=== PATIENT | male | born 1970 | race Caucasian/White ===

== ENCOUNTER 2017-03-10 09:54 | Day surgery (SDC) | payer BC ==
[~2017-03-10 09:54] MED LIST: ASPIRIN81 M1 PO; COENZYME Q10200 M2 PO; COREG25 M1 PO; Ceftin PO; K-DUR20 MEQ PO; LASIX80 MG PO; PRINIVIL5 MG PO; Robitussin AC,Tussi- PO; SPIRONOLACTONE25 MG PO; Theragran PO; Zithromax PO
[2017-03-10] MEDS ORDERED: CELLCEPT250 MG PO (10:24)
[2017-03-10] MEDS ORDERED: ENVARSUS XR4 MG PO (10:25)
[2017-03-10] MEDS ORDERED: AMIODARONE HCL100 MG PO (10:26)
[2017-03-10] MEDS ORDERED: ALLOPURINOL100 MG PO (10:26)
[2017-03-10] MEDS ORDERED: PREDNISONE20 MG PO (10:27)
[2017-03-10] MEDS ORDERED: PRAVASTATIN SOD10 MG PO (10:27)
[2017-03-10] MEDS ORDERED: LANSOPRAZOLE30 MG PO (10:28)
[2017-03-10] MEDS ORDERED: METOPROLOL SUCC25 MG PO (10:28)
[2017-03-10] MEDS ORDERED: [UNRECOGNIZED DRUG - CODE] PO (10:29)
[2017-03-10] MEDS ORDERED: MAGNESIUM100 MG PO (10:29)
[2017-03-10] MEDS ORDERED: VITAMIN D2000 UNI1 PO (10:29)
[2017-03-10] MEDS ORDERED: BACTRIM,SEPT1 TABLET PO (10:30)
[2017-03-10] MEDS ORDERED: METOLAZONE2.5 MG PO (10:31)
[2017-03-10] MEDS ORDERED: ACYCLOVIR200 MG PO (10:31)
[2017-03-10] MEDS ORDERED: BUMEX2 MG PO (10:32)
[2017-03-10 12:57] LABS: METH RESISTANT S AUREUS PCR NEGATIVE (NEGATIVE); PROBE CHECK PASS; SPECIMEN PROCESSING CONTROL PASS
== END 2017-03-10 14:00 | disposition home or self-care (01) ==
LOC: CATH 09:54
PROVIDERS: Surgery
PROC: 0J2TXYZ Change Other Device in Trunk Subcutaneous Tissue and Fascia, External Approach (ICD-10-PCS; principal; 2017-03-10)
DX: T82.514A Breakdown (mechanical) of infusion catheter, initial encounter (principal); I13.2 Hypertensive heart and chronic kidney disease with heart failure and with stage 5 chronic kidney disease, or end stage renal disease; N18.6 End stage renal disease; I50.9 Heart failure, unspecified; Z99.2 Dependence on renal dialysis
CPT/HCPCS: 87641; C1752; C1769; C1894; J0690; J1200; J1644; J2250; J3010; S0020

== ENCOUNTER 2017-05-12 05:33 | Day surgery (SDC) | payer BC ==
[~2017-05-12] VITALS: Ht 185.4 cm; Wt 95.3 kg
[~2017-05-12 05:33] MED LIST changes: +ACYCLOVIR200 MG PO; +ALLOPURINOL100 MG PO; +AMIODARONE HCL100 MG PO; +APRESOLINE50 MG PO; +BACTRIM,SEPT1 TABLET PO; +BUMEX2 MG PO; +CELLCEPT500 MG PO; +ENVARSUS XR4 MG PO; +HUMALOG100 UNIT/1 SC; +HUMALOG100 UNIT/1 SQ; +LANSOPRAZOLE30 MG PO; +MAGNESIUM100 MG PO; +METOLAZONE2.5 MG PO; +METOPROLOL SUCC25 MG PO; +NORVASC10 MG PO; +PRAVASTATIN SOD10 MG PO; +PREDNISONE10 MG PO; +PROGRAF5 MG PO; +VITAMIN D2000 UNI1 PO; +[UNRECOGNIZED DRUG - CODE] PO
[2017-05-12 05:50] VITALS: BP 143/76
[2017-05-12 06:29] LABS: HEMATOCRIT 30.7 % (38.0-50.0); HEMOGLOBIN 9.9 G/DL (12.5-16.6); MCH 29.5 PG (29.0-34.0); MCHC 32.2 G/DL (30.0-36.0); MCV 91.4 FL (86-99); PLATELET COUNT 143 K/uL (156-360); RBC DIS.WIDTH-CV 15.2 % (11.8-14.6); RBC DIS.WIDTH-SD 49.9 % (39-53); RED BLOOD COUNT 3.36 M/uL (4.00-5.50); WHITE BLOOD COUNT 4.9 K/uL (4.1-10.2)
[2017-05-12 06:57] LABS: CHLORIDE 99 MEQ/L (99-109); GFR ESTIMATE (CALCULATED) 11 mL/min/ (58.99-99999); GLUCOSE 115 mg/dL (70-99); POTASSIUM 3.5 MEQ/L (3.7-5.4); SODIUM 142 MEQ/L (136-147); UREA NITROGEN (BUN) 82 mg/dL (9-23)
[2017-05-12 09:40] VITALS: BP 122/64
[2017-05-12 10:28] VITALS: BP 119/58
== END 2017-05-12 10:40 | disposition home or self-care (01) ==
LOC: SDC 05:33
PROVIDERS: Surgery
DX: I12.0 Hypertensive chronic kidney disease with stage 5 chronic kidney disease or end stage renal disease (principal); E09.22 Drug or chemical induced diabetes mellitus with diabetic chronic kidney disease; T38.0X5A Adverse effect of glucocorticoids and synthetic analogues, initial encounter; N18.6 End stage renal disease; Z99.2 Dependence on renal dialysis; Z79.82 Long term (current) use of aspirin; I25.10 Atherosclerotic heart disease of native coronary artery without angina pectoris; Z94.1 Heart transplant status
CPT/HCPCS: 80048; 85027; 87641; C1750; J0690; J1644; J2250; J3010

== ENCOUNTER 2017-06-14 13:49 | Day surgery (SDC) | payer BC ==
[~2017-06-14] VITALS: Ht 185.4 cm; Wt 98.0 kg
[2017-06-14 14:04] VITALS: BP 147/86
[2017-06-14 14:31] LABS: MCH 30.6 PG (29.0-34.0); MCHC 31.4 G/DL (30.0-36.0); MCV 97.5 FL (86-99); PLATELET COUNT 151 K/uL (156-360); RBC DIS.WIDTH-CV 14.6 % (11.8-14.6); RBC DIS.WIDTH-SD 52.7 % (39-53); RED BLOOD COUNT 3.59 M/uL (4.00-5.50); WHITE BLOOD COUNT 3.8 K/uL (4.1-10.2)
[2017-06-14 14:51] LABS: CHLORIDE 102 MEQ/L (99-109); CREATININE 3.8 MG/DL (0.6-1.3); GFR ESTIMATE (CALCULATED) 18 mL/min/ (58.99-99999); GLUCOSE 148 mg/dL (70-99); POTASSIUM 4.2 MEQ/L (3.7-5.4); SODIUM 141 MEQ/L (136-147); UREA NITROGEN (BUN) 45 mg/dL (9-23)
[2017-06-14] MEDS ORDERED: NORCO 5/3251 TABLET PO (18:36)
[2017-06-14 19:25] VITALS: BP 154/79
[2017-06-14 20:05] VITALS: BP 138/80
== END 2017-06-14 20:20 | disposition home or self-care (01) ==
LOC: SDC 13:49
PROVIDERS: Surgery
PROC: 0JWT33Z Revision of Infusion Device in Trunk Subcutaneous Tissue and Fascia, Percutaneous Approach (ICD-10-PCS; principal; 2017-06-14)
DX: T85.611A Breakdown (mechanical) of intraperitoneal dialysis catheter, initial encounter (principal); I12.0 Hypertensive chronic kidney disease with stage 5 chronic kidney disease or end stage renal disease; E11.22 Type 2 diabetes mellitus with diabetic chronic kidney disease; N18.6 End stage renal disease; Z99.2 Dependence on renal dialysis; I25.10 Atherosclerotic heart disease of native coronary artery without angina pectoris; Z94.1 Heart transplant status; Z79.4 Long term (current) use of insulin; Z79.82 Long term (current) use of aspirin
CPT/HCPCS: 80048; 82948; 85027; C1750; J0131; J0690; J1100; J1170; J2250; J2405; J2710; S0020

== ENCOUNTER 2017-06-22 13:56 | Day surgery (SDC) | payer BC ==
[~2017-06-22] VITALS: Ht 185.4 cm; Wt 98.0 kg
[~2017-06-22 13:56] MED LIST changes: +ASPIR 8181 M1 PO; -ASPIRIN81 M1 PO; +NORCO 5/3251 TABLET PO; +PROGRAF1 MG PO; -PROGRAF5 MG PO
[2017-06-22 14:27] VITALS: BP 163/81
[2017-06-22 14:34] LABS: HEMATOCRIT 35.7 % (38.0-50.0); HEMOGLOBIN 11.3 G/DL (12.5-16.6); MCH 31.1 PG (29.0-34.0); MCHC 31.7 G/DL (30.0-36.0); MCV 98.3 FL (86-99); PLATELET COUNT 141 K/uL (156-360); RBC DIS.WIDTH-CV 14.2 % (11.8-14.6); RBC DIS.WIDTH-SD 51.1 % (39-53); RED BLOOD COUNT 3.63 M/uL (4.00-5.50); WHITE BLOOD COUNT 3.5 K/uL (4.1-10.2)
[2017-06-22 15:06] LABS: CHLORIDE 99 MEQ/L (99-109); CREATININE 4.8 MG/DL (0.6-1.3); GFR ESTIMATE (CALCULATED) 14 mL/min/ (58.99-99999); POTASSIUM 4.3 MEQ/L (3.7-5.4); SODIUM 138 MEQ/L (136-147); UREA NITROGEN (BUN) 36 mg/dL (9-23)
[2017-06-22 15:11] LABS: GLUCOSE 157 mg/dL (70-99)
[2017-06-22 20:40] VITALS: BP 157/74
[2017-06-22 21:10] VITALS: BP 162/91
== END 2017-06-22 21:12 | disposition home or self-care (01) ==
LOC: SDC 13:56
PROVIDERS: Surgery
PROC: 0WW Anatomical Regions, General, Revision (ICD-10-PCS; principal; 2017-06-22)
DX: T85.611A Breakdown (mechanical) of intraperitoneal dialysis catheter, initial encounter (principal); Y81.2 Prosthetic and other implants, materials and accessory general- and plastic-surgery devices associated with adverse incidents; I25.10 Atherosclerotic heart disease of native coronary artery without angina pectoris; Z94.1 Heart transplant status; I12.0 Hypertensive chronic kidney disease with stage 5 chronic kidney disease or end stage renal disease; N18.6 End stage renal disease; Z99.2 Dependence on renal dialysis; Z79.82 Long term (current) use of aspirin; Z79.899 Other long term (current) drug therapy; Z79.52 Long term (current) use of systemic steroids; Z88.1 Allergy status to other antibiotic agents; Z80.49 Family history of malignant neoplasm of other genital organs; Z82.49 Family history of ischemic heart disease and other diseases of the circulatory system
CPT/HCPCS: 74018; 76000; 80048; 82948; 85027; J0330; J0690; J2250; J3010; S0020

== ENCOUNTER 2017-06-24 09:01 | Day surgery (SDC) | payer BC ==
[2017-06-24 09:14] VITALS: BP 162/84
[2017-06-24 10:11] LABS: HEMATOCRIT 31.4 % (38.0-50.0); HEMOGLOBIN 10.1 G/DL (12.5-16.6); MCH 31.2 PG (29.0-34.0); MCHC 32.2 G/DL (30.0-36.0); MCV 96.9 FL (86-99); PLATELET COUNT 116 K/uL (156-360); RBC DIS.WIDTH-CV 13.9 % (11.8-14.6); RBC DIS.WIDTH-SD 49.1 % (39-53); RED BLOOD COUNT 3.24 M/uL (4.00-5.50); WHITE BLOOD COUNT 2.8 K/uL (4.1-10.2)
[2017-06-24 10:53] LABS: CHLORIDE 99 MEQ/L (99-109); CREATININE 5.4 MG/DL (0.6-1.3); GFR ESTIMATE (CALCULATED) 12 mL/min/ (58.99-99999); POTASSIUM 3.7 MEQ/L (3.7-5.4); SODIUM 137 MEQ/L (136-147); UREA NITROGEN (BUN) 38 mg/dL (9-23)
[2017-06-24 10:58] LABS: GLUCOSE 93 mg/dL (70-99)
[2017-06-24 15:23] VITALS: BP 143/76
[2017-06-24] MEDS ORDERED: PROGRAF1 MG PO (16:51)
[2017-06-24] MEDS ORDERED: TACROLIMUS ANH0.5 MG PO (16:53)
[2017-06-24 19:20] VITALS: BP 154/75
== END 2017-06-24 20:08 | disposition home or self-care (01) ==
LOC: SDC 09:01 → 2EAST 09:02 → SDC 22:48
PROVIDERS: Surgery
PROC: 0WWG00Z Revision of Drainage Device in Peritoneal Cavity, Open Approach (ICD-10-PCS; principal; 2017-06-24)
DX: T85.611A Breakdown (mechanical) of intraperitoneal dialysis catheter, initial encounter (principal); Y81.2 Prosthetic and other implants, materials and accessory general- and plastic-surgery devices associated with adverse incidents; Z94.1 Heart transplant status; I12.0 Hypertensive chronic kidney disease with stage 5 chronic kidney disease or end stage renal disease; E11.22 Type 2 diabetes mellitus with diabetic chronic kidney disease; N18.6 End stage renal disease; Z99.2 Dependence on renal dialysis; Z79.82 Long term (current) use of aspirin; Z79.4 Long term (current) use of insulin; Z88.1 Allergy status to other antibiotic agents; Z82.49 Family history of ischemic heart disease and other diseases of the circulatory system; Z83.3 Family history of diabetes mellitus; Z80.49 Family history of malignant neoplasm of other genital organs
CPT/HCPCS: 80048; 82948; 85027; G0378; J0690; J2250; J3010; J7040; S0020

== ENCOUNTER → 2017-07-03 | Outpatient (CLI) | payer BC ==
[~2017-07-03] MED LIST changes: +MULTIVITAMIN1 EAC2 PO; +TACROLIMUS ANH0.5 MG PO
== END | disposition home or self-care (01) ==
LOC: AMB 14:22
PROC: 02PYX3Z Removal of Infusion Device from Great Vessel, External Approach (ICD-10-PCS; principal; 2017-07-03)
DX: Z45.2 Encounter for adjustment and management of vascular access device (principal)